=== PATIENT | female | born 1995 | race African-American/Black ===

== ENCOUNTER 2023-08-26 10:05 | Emergency (ER) ==
[~2023-08-26] VITALS: Ht 157.5 cm; Wt 85.9 kg
[~2023-08-26 10:05] MED LIST: MACR100C43 PO
== END 2023-08-26 11:05 | disposition left against medical advice (07) ==
LOC: M ED 10:05
DX: Z53.21 Procedure and treatment not carried out due to patient leaving prior to being seen by health care provider (principal)

== ENCOUNTER 2024-01-01 11:08 | Emergency (ER) | payer OTHER ==
[~2024-01-01] VITALS: Ht 157.5 cm; Wt 87.2 kg
[2024-01-01] MEDS ORDERED: ALBU8.5H INH (11:20)
[2024-01-01 12:12] LABS: URINE PREG TEST NEGATIVE (NEGATIVE)
[2024-01-01] MEDS: ACETAMINOPHEN 325 MG TAB PO ONE (12:36)
[2024-01-01] MEDS: ONDANSETRON 4MG 2ML VIAL IV ONE (14:28)
[2024-01-01] MEDS: NS 1,000 ML IV ONE (14:28)
[2024-01-01 14:32] LABS: BASO % 0.2 % (0.0-1.0); EOS % 0.2 % (0.0-3.0); HEMATOCRIT 33.9 % (36.0-47.0); LYMPH # 0.8 10^3/uL (1.5-5.0); LYMPH % 12.7 % (24.0-44.0); MEAN CORPUSCULAR HEMOGLOBIN 27.6 pg (27.0-33.0); MEAN CORPUSCULAR HGB CONC 32.4 g/dl (32.0-36.5); MEAN CORPUSCULAR VOLUME 85.2 fl (80.0-96.0); MONO # 0.5 10^3/uL (0.0-0.8); MONO % 7.8 % (2.0-8.0); NEUTROPHILS % 78.8 % (36.0-66.0); PLATELET COUNT, AUTOMATED 222 10^3/uL (150-450); RED BLOOD COUNT 3.98 10^6/uL (4.00-5.40); WHITE BLOOD COUNT 6.3 10^3/uL (4.0-10.0)
[2024-01-01 14:54] LABS: BLOOD UREA NITROGEN 7 MG/DL (9-23); CALCIUM LEVEL 9.3 MG/DL (8.5-10.1); CARBON DIOXIDE LEVEL 26 MMOL/L (20-31); CHLORIDE LEVEL 105 MMOL/L (98-107); CREATININE FOR GFR 0.61 MG/DL (0.55-1.30); GLOMERULAR FILTRATION RATE > 60.0 (>60); GLUCOSE, FASTING 91 MG/DL (60-100); POTASSIUM SERUM 3.4 MMOL/L (3.5-5.1); SODIUM LEVEL 137 MMOL/L (136-145)
[2024-01-01] MEDS ORDERED: CEPH500C PO (15:21)
[2024-01-01] MEDS: cefTRIAXone SOD 1 GM in D5W MINI-BAG PLUS 50 ML IV ONE (15:47)
[2024-01-01] MEDS: POTASSIUM CHLORIDE 10% LIQ 20MEQ/15ML UDC PO ONE (15:47)
[2024-01-01 16:00] VITALS: BP 136/81; TEMP 99.7; O2SAT 100
== END 2024-01-01 16:24 | disposition home or self-care (01) ==
LOC: M ED 11:08
DX: N30.00 Acute cystitis without hematuria (principal); E87.6 Hypokalemia; B34.9 Viral infection, unspecified; J45.909 Unspecified asthma, uncomplicated; F90.9 Attention-deficit hyperactivity disorder, unspecified type
CPT/HCPCS: 80048; 81001; 84703; 85025; 87088; 87186; 87486; 87581; 87633; 87798; 96365; 96375; 99284; J0696; J2405

== ENCOUNTER 2024-10-28 21:52 | Outpatient (CLI) | payer OTHER ==
[~2024-10-28] VITALS: Ht 157.5 cm; Wt 94.2 kg
[~2024-10-28 21:52] MED LIST changes: +ALBU8.5H INH; +CEPH500C PO
[2024-10-28 22:09] VITALS: BP 109/65; O2SAT 99
[2024-10-28 22:36] VITALS: BP 101/61
== END 2024-10-28 23:20 | disposition home or self-care (01) ==
LOC: M LDO 21:52
PROVIDERS: ATTEND Advanced Practice Midwife
DX: O26.893 Other specified pregnancy related conditions, third trimester (principal); R60.9 Edema, unspecified; Z3A.35 35 weeks gestation of pregnancy
CPT/HCPCS: 59025; G0463